=== PATIENT | male | born 2005 | race African-American/Black ===

== ENCOUNTER 2024-05-03 11:51 | Inpatient (IN) | payer OTHER ==
[~2024-05-03] VITALS: Ht 188 cm; Wt 91.2 kg
[2024-05-03 15:50] VITALS: BP 130/70; PULSE 85; RESP 18; TEMP 98.1; O2SAT 100
[2024-05-03] MEDS ORDERED: ACETAMINOPHEN 325 MG TABLET PO PRN (17:00)
[2024-05-03] MEDS ORDERED: DOCUSATE SODIUM 100 MG CAPSULE PO PRN (17:00)
[2024-05-03] MEDS ORDERED: CARBOXYMETHYLCELLULOSE SODIUM 0.4 ML OPHTHALMIC SOLUTION [PF] OS PRN (17:00)
[2024-05-03 20:20] VITALS: BP 143/77; PULSE 92; RESP 18; TEMP 98.7; O2SAT 100
[2024-05-03 20:25] VITALS: O2SAT 100
[2024-05-03] MEDS: ETHYL ALCOHOL 62% ANTISEPTIC NASAL SANITIZER 0.6 ML AMPUL NASAL SCH (20:50)
[2024-05-03] MEDS: HEPARIN SODIUM,PORCINE 5,000 UNITS/ML VIAL SQ SCH (23:47)
[2024-05-04 08:05] VITALS: BP 131/75; PULSE 73; RESP 18; TEMP 98.1; O2SAT 98
[2024-05-04] MEDS: POLYETHYLENE GLYCOL 3350 17 GM PACKET PO SCH (08:10)
[2024-05-04 08:13] LABS: BASOPHILS % (AUTO) 1.1 % (0.0-2.0); EOSINOPHILS % (AUTO) 1.7 % (1.0-6.0); HEMATOCRIT 37.6 % (41-53); HEMOGLOBIN 12.4 g/dL (13.5-17.5); LYMPHOCYTES # (AUTO) 0.8 K/uL (1.0-4.8); LYMPHOCYTES % (AUTO) 15.2 % (22.0-44.0); MEAN CORPUSCULAR HEMOGLOBIN 30.1 pg (26.0-34.0); MEAN CORPUSCULAR VOLUME 91 fL (80-100); MONOCYTES # (AUTO) 0.4 K/uL (0.1-1.0); MONOCYTES % (AUTO) 8.9 % (2.0-9.0); NEUTROPHILS # (AUTO) 3.7 K/uL (1.8-7.7); NEUTROPHILS % (AUTO) 73.1 % (40.0-70.0); PLATELET COUNT (AUTO) 168 K/uL (150-450); RED BLOOD CELL COUNT(AUTO) 4.13 MIL/uL (4.50-5.90); RED CELL DISTRIBUTION WIDTH 14.4 % (11.5-14.5)
[2024-05-04 08:31] LABS: ALANINE AMINOTRANSFERASE 34 U/L (12-78); ALBUMIN 2.7 g/dL (3.4-5.0); ALKALINE PHOSPHATASE 57 U/L (46-116); ANION GAP 3 mmol/L (8-16); ASPARTATE AMINOTRANSFERASE 19 U/L (15-37); BILIRUBIN,TOTAL 0.5 mg/dL (0.1-1.0); CARBON DIOXIDE 33 mmol/L (22-29); CHLORIDE 101 mmol/L (98-107); CREATININE 0.85 mg/dL (0.60-1.30); GLOMERULAR FILTR. RATE CALC > 60 mL/min (>60); GLUCOSE,RANDOM 79 mg/dL (70-110); POTASSIUM 4.3 mmol/L (3.5-5.1); SODIUM SERUM 136 mmol/L (136-145); TOTAL PROTEIN, SERUM 6.3 g/dL (6.4-8.2); UREA NITROGEN, BLOOD 14 mg/dL (7-18)
[2024-05-04 08:51] LABS: RBC MORPHOLOGY COMMENT NORMAL RBC MORPH
[2024-05-04 09:01] VITALS: O2SAT 98
[2024-05-04 21:22] VITALS: BP 119/80; PULSE 75; RESP 18; TEMP 98.8; O2SAT 100
[2024-05-04 21:49] VITALS: O2SAT 100
[2024-05-05 08:00] VITALS: O2SAT 99
[2024-05-05 08:05] VITALS: BP 121/73; PULSE 80; RESP 18; TEMP 99.1; O2SAT 99
[2024-05-05 20:00] VITALS: BP 120/62; PULSE 74; RESP 20; TEMP 98.8; O2SAT 100
[2024-05-06 08:02] VITALS: BP 125/66; PULSE 72; RESP 18; TEMP 98.2; O2SAT 100
[2024-05-06 20:34] VITALS: BP 119/62; PULSE 78; RESP 18; TEMP 98.7; O2SAT 98
[2024-05-06 21:00] VITALS: O2SAT 98
[2024-05-07 08:00] VITALS: BP 106/47; PULSE 66; RESP 20; TEMP 98; O2SAT 95
[2024-05-07 20:00] VITALS: BP 135/62; PULSE 71; RESP 18; TEMP 98.3; O2SAT 100
[2024-05-08 07:52] VITALS: BP 118/53; PULSE 77; RESP 18; TEMP 98.5; O2SAT 99
[2024-05-08 09:06] VITALS: O2SAT 100
[2024-05-08 22:14] VITALS: BP 129/70; PULSE 86; RESP 18; TEMP 98.4; O2SAT 100
[2024-05-09 08:10] VITALS: BP 120/70; PULSE 68; RESP 18; TEMP 98; O2SAT 99
[2024-05-09 09:24] VITALS: O2SAT 99
[2024-05-09 20:44] VITALS: BP 110/49; PULSE 84; RESP 18; TEMP 98.7; O2SAT 99
[2024-05-10 02:37] VITALS: O2SAT 99
[2024-05-10 08:05] VITALS: BP 130/78; PULSE 74; RESP 18; TEMP 97.8; O2SAT 99
[2024-05-10 08:23] VITALS: O2SAT 99
[2024-05-10 20:00] VITALS: O2SAT 99
[2024-05-10 21:38] VITALS: BP 134/63; PULSE 86; RESP 19; TEMP 98.3; O2SAT 100
[2024-05-11 08:00] VITALS: BP 117/67; PULSE 68; RESP 17; TEMP 98.1; O2SAT 95
[2024-05-11 20:00] VITALS: BP 124/69; PULSE 87; RESP 18; TEMP 98.3; O2SAT 100
[2024-05-12 08:00] VITALS: BP 111/62; PULSE 69; RESP 20; TEMP 97.7; O2SAT 100
[2024-05-12 20:01] VITALS: BP 125/68; PULSE 74; RESP 18; TEMP 98; O2SAT 97
[2024-05-12 22:44] VITALS: O2SAT 97
[2024-05-13 08:00] VITALS: BP 116/79; PULSE 64; RESP 18; TEMP 98; O2SAT 100
[2024-05-13 20:38] VITALS: BP 130/55; PULSE 93; RESP 18; TEMP 98.1; O2SAT 100
[2024-05-13 22:29] VITALS: O2SAT 100
[2024-05-14 08:00] VITALS: BP 108/52; PULSE 78; RESP 18; TEMP 98.1; O2SAT 100
[2024-05-14 20:00] VITALS: BP 119/79; PULSE 85; RESP 18; TEMP 98; O2SAT 100
[2024-05-15 08:00] VITALS: BP 115/74; PULSE 75; RESP 17; TEMP 97.8; O2SAT 100
== END 2024-05-15 11:20 | disposition home health service (06) | DRG 57 ==
LOC: 2WR 16:01
PROVIDERS: ADMIT Physical Medicine & Rehabilitation; ATTEND Physical Medicine & Rehabilitation
DX: G91.1 Obstructive hydrocephalus (principal); I69.354 Hemiplegia and hemiparesis following cerebral infarction affecting left non-dominant side; E44.1 Mild protein-calorie malnutrition; H47.10 Unspecified papilledema; R47.1 Dysarthria and anarthria; R13.12 Dysphagia, oropharyngeal phase; Z74.09 Other reduced mobility; D64.9 Anemia, unspecified; H53.2 Diplopia; H54.7 Unspecified visual loss; R26.89 Other abnormalities of gait and mobility; G93.89 Other specified disorders of brain; Z68.25 Body mass index [BMI] 25.0-25.9, adult; Z79.899 Other long term (current) drug therapy
CPT/HCPCS: 80053; 85025; 87081; 92507; 92523; 93970; 97110; 97112; 97116; 97163; 97167; 97530; 97535; 99366; J1644